=== PATIENT | female | born 1955 | race Caucasian/White ===

== ENCOUNTER 2024-05-31 08:10 | Emergency (ER) | payer MEDICARE, OTHER ==
--- NOTE | 2024-05-31 08:54 | ED Physician Documentation ---
History of Present Illness - Stated complaint Stated Complaint: LT ANKLE SWELLING,PX - Chief complaint Chief Complaint: Ext Problem - History obtained from History obtained from: Patient - History of Present Illness Pain level max: 0 Pain level now: 0 - Additonal information Additional information: 68-year-old female presents to the emergency department stating that she has had a left lower extremity swelling. She states that she went to the walk-in clinic yesterday in [place]. She states she had negative x-rays of her left ankle and left tib-fib. She states that she had blood work performed which showed an elevated D-dimer and so she was sent here for an ultrasound to rule out a blood clot in her leg. Does not recall any injury. No recent immobilization. No recent surgeries. Has not had blood clots in the past. She had a negative uric acid level. Otherwise normal laboratory testing per patient. Review of Systems Constitutional: denies: Fever, Chills Respiratory: denies: Dyspnea, Cough PD PAST MEDICAL HISTORY - Past Medical History Past Medical History: Yes Cardiovascular: Hypertension - Past Surgical History Past Surgical History: Yes General: Cholecystectomy, Other Ortho: Carpal Tunnel surgery - Allergies Allergies/Adverse Reactions: Allergies Allergy/AdvReac Type Severity Reaction Status Date / Time Penicillins Allergy Unknown Verified 05/31/24 08:43 codeine AdvReac Unknown Verified 05/31/24 08:43 Sulfa (Sulfonamide AdvReac Rash Verified 05/31/24 08:43 Antibiotics) - Social History Does the pt smoke?: No Smoking Status: Never smoker Does the pt drink ETOH?: No Does the pt have substance abuse?: No - Immunizations Immunizations are current?: Yes PD ED PE NORMAL - Vitals Vital signs reviewed: Yes - General General: Alert and oriented X 3, No acute distress - Derm Derm: Warm and dry - Extremities Extremities: Other (LLE - There is swelling to the left calf, left ankle and left foot. No posterior calf tenderness. No significant erythema. No warmth. No bony tenderness. Brisk cap refill. Neurovascular intact.) - Neuro Neuro: Alert and oriented X 3 Results - Vitals Vitals: Vital Signs - 24 hr 05/31/24 05/31/24 08:20 09:58 Temperature 36.4 C L 36.4 C L Heart Rate 99 92 Respiratory 16 16 Rate Blood Pressure 173/85 H 168/80 H O2 Saturation 98 99 - Rads (name of study) duplex US LLE Relevant Findings:: Final report received, See rad report PD Medical Decision Making - ED course Complexity details: reviewed old records (Reviewed records from the walk-in clinic), reviewed results, re-evaluated patient, considered differential, d/w patient ED course: No acute findings on duplex ultrasound left lower extremity. No evidence of DVT. She had negative x-rays yesterday. Normal white blood cell count yesterday. She did feel a sting in her calf yesterday, possible allergic reaction? She feels like the swelling and redness are decreasing already today. We will trial her on antihistamines for home. Will hold steroids at this time. She was prescribed antibiotics at the walk-in clinic yesterday, she can finish these, this does not appear to be bacterial likely. No evidence of sepsis. No indication for further workup at this time. She will return to the emergency department if she worsens or fails to improve as expected. No crepitus. No necrotizing infection. Patient counseled regarding signs and symptoms for which I believe and urgent re-evaluation would be necessary. Patient with good understanding of and agreement to plan and is comfortable going home at this time This document was made in part using voice recognition software. While efforts are made to proofread this document, sound alike and grammatical errors may occur. Departure - Departure Disposition: 01 Home, Self Care Clinical Impression: Peripheral edema Condition: Good Instructions: ED Leg Swelling Unilateral Follow-Up: SONIDO GUTIERREZ DO [Primary Care Provider] - Comments: As we discussed your ultrasound of your leg does not show any evidence of blood clots in the leg. Your symptoms are more consistent with an allergic reaction rather than an infection. Would recommend starting Zyrtec or Claritin for the next few days. Please return if you worsen. This should improve on its own over the next few days. Forms: PCP List Discharge Date/Time: 05/31/24 09:59
--- NOTE | 2024-05-31 09:42 | Ultrasound Report ---
PROCEDURE: Duplex Ext Veins Left INDICATIONS: LLE swelling, pain TECHNIQUE: Real-time imaging, as well as color and pulse Doppler interrogation, were performed of the lower extr emity deep veins from the inguinal ligament to the popliteal fossa. Attempted visualization of the ca lf veins was performed. COMPARISON: None. FINDINGS: The deep veins are normally compressible, and free of intraluminal thrombus. Color and pu lse Doppler demonstrate normal phasic intraluminal flow. There is normal augmentation response to di stal compression maneuver. IMPRESSION: No deep venous thrombosis of the visualized lower extremity. Note: Concordant preliminary findings given by the b2b outside sales representative upon the completion of the examination to Dr. Schneider at 9:25 AM on 05/31/2024. Reviewed by: Cy Alcocer MD on 05/31/2024 8:40 AM MICHAEL Approved by: Cy Alcocer MD on 05/31/2024 8:40 AM MICHAEL Station ID: [id number]
[2024-05-31 10:04] VITALS: BP 168/80; O2SAT 99
== END 2024-05-31 09:59 | disposition home or self-care (01) ==
LOC: ED 08:10
DX: R60.0 Localized edema (principal); I10 Essential (primary) hypertension
CPT/HCPCS: 99283; 99284